=== PATIENT | female | born 1950 ===

== ENCOUNTER 2017-07-30 14:26 | Emergency (ER) | payer OTHER ==
[2017-07-30] MEDS ORDERED: fentaNYL 100 MCG/2 ML INJ IVP ONE (14:51)
[2017-07-30] MEDS ORDERED: ONDANSETRON 4 MG/2 ML VIAL IVP ONE (15:07)
--- NOTE | 2017-07-30 15:10 | EDPHY ---
H & P Stated Complaint: Left femur pain Time Seen by Provider: 07/30/17 14:27 HPI/ROS: CHIEF COMPLAINT: Left femur pain HISTORY OF PRESENT ILLNESS: The patient presents the ED with complaints of posterior left femur pain after she sustained a mechanical fall at home. The patient reports moderate pain along the posterior aspect of her thigh. She denies any associated numbness or weakness. She is unable to fully extend her left leg. She denies any pelvic pain, back pain, headache, neck pain, chest pain or difficulty breathing. REVIEW OF SYSTEMS: A comprehensive 10 point review of systems is otherwise negative aside from elements mentioned in the history of present illness. Source: Patient Exam Limitations: No limitations - Personal History Current Tetanus/Diphtheria Vaccine: Yes Current Tetanus Diphtheria and Acellular Pertussis (TDAP): Yes - Medical/Surgical History Hx Asthma: No Hx Chronic Respiratory Disease: No Hx Diabetes: No Hx Cardiac Disease: No Hx Renal Disease: No Hx Cirrhosis: No Hx Alcoholism: No Hx HIV/AIDS: No Hx Splenectomy or Spleen Trauma: No Other PMH: PMH: Thyroid,. PSH: appy, hysterectomy - Social History Smoking Status: Never smoked - Physical Exam Exam: General Appearance: Alert, no distress Head: Atraumatic Eyes: Pupils equal, round, reactive ENT, Mouth: No hemotympanum, no oral trauma Neck: Nontender, trachea midline Respiratory: No chest wall tender, subcutaneous air, lungs clear bilaterally Cardiovascular: Regular rate and rhythm Abdomen: Abdomen is soft and nontender, pelvis stable Skin: No lacerations, No abrasion Back: No midline T/L/S pain Extremities: Left leg held in slight flexion, tenderness to palpation along the hamstring Neurological: A&Ox3, normal motor function, normal sensory exam Constitutional: Initial Vital Signs Temperature (C) 36.7 C 07/30/17 14:29 Heart Rate 86 07/30/17 14:29 Respiratory Rate 18 07/30/17 14:29 Blood Pressure 154/84 H 07/30/17 14:29 O2 Sat (%) 97 07/30/17 14:29 O2 Delivery Mode Nasal Cannula O2 (L/minute) 2 Allergies/Adverse Reactions: ciprofloxacin [From Cipro] Allergy (Verified 07/30/17 14:33) Home Medications: Medication Instructions Recorded Hemp Oil 07/30/17 Synthroid 07/30/17 Medical Decision Making - Diagnostics Imaging Results: Imaging Impressions Femur X-Ray 07/30/17 14:50 Impression: Normal left femur series. ED Course/Re-evaluation: The patient presents to the emergency department after mechanical fall with left hamstring and femur pain. The patient's x-ray demonstrates no evidence of a fracture or dislocation. She did have an IV established. She received 100 mcg of fentanyl. She did receive some Zofran for a single episode of vomiting after receiving narcotic medications. The patient did receive 1 L of normal saline in the setting of her vomiting. I re-evaluated the patient at 3:45 p.m.. She is groggy from narcotic medications. I have informed her of the results of her x-ray. Plan is for observation in the emergency department and attempted ambulation with crutches. I do suspect she has some type of hamstring injury. The patient is able to ambulate with crutches. She is still having a fair amount of pain. She was offered admission to the hospital. She does understand that we have not excluded a hamstring injury. The patient is referred to our on-call orthopedic surgeon Dr. Colin. She is advised to take Tylenol as needed. She is given a prescription for Flexeril for muscle relaxation. Differential Diagnosis: Differential diagnosis considered includes femur fracture, hip dislocation, hamstring injury - Data Points Medications Given: Discontinued Medications Fentanyl (Sublimaze) 100 mcg IVP EDNOW ONE Stop: 07/30/17 14:52 Last Admin: 07/30/17 14:57 Dose: 100 mcg Sodium Chloride (Ns) 1,000 mls @ 0 mls/hr IV EDNOW ONE; Wide Open PRN Reason: Protocol Stop: 07/30/17 15:19 Last Admin: 07/30/17 15:23 Dose: 1,000 mls Ketorolac Tromethamine (Toradol) 15 mg IVP EDNOW ONE Stop: 07/30/17 16:43 Last Admin: 07/30/17 16:47 Dose: 15 mg Lorazepam (Ativan Injection) 0.5 mg IVP EDNOW ONE Stop: 07/30/17 16:43 Last Admin: 07/30/17 16:47 Dose: 0.5 mg Ondansetron HCl (Zofran) 4 mg IVP EDNOW ONE Stop: 07/30/17 15:08 Last Admin: 07/30/17 15:23 Dose: 4 mg Departure - Departure Disposition: Home, Routine, Self-Care Clinical Impression: Left hamstring injury Condition: Good Instructions: Hamstring Injury (ED) Additional Instructions: 1. Take Ibuprofen or Motrin 600 mg by mouth three times a day. 2. Flexeril as needed for muscle relaxation. 3. Zofran as needed for nausea. 4. Please contact [facility] tomorrow to schedule a follow-up visit with Orthopedic surgery for any ongoing pain or difficulty walking.
[2017-07-30] MEDS ORDERED: NS 1,000 ML IV ONE (15:18)
[2017-07-30] MEDS ORDERED: LORazepam 2 MG/ML INJ IVP ONE (16:42)
[2017-07-30] MEDS ORDERED: KETOROLAC 15 MG/1 ML SDV IVP ONE (16:42)
[2017-07-30 17:18] VITALS: BP 144/77
== END 2017-07-30 17:30 | disposition home or self-care (01) ==
LOC: EDUNIT# → EDBD
DX: S79.922A Unspecified injury of left thigh, initial encounter (principal); E86.9 Volume depletion, unspecified; W18.39XA Other fall on same level, initial encounter; Y92.009 Unspecified place in unspecified non-institutional (private) residence as the place of occurrence of the external cause
CPT/HCPCS: 73551; 96361; 96374; 96375; 99284; J1885; J2060; J2405; J3010